=== PATIENT | male | born 1985 | race African-American/Black ===

== ENCOUNTER 2017-03-17 20:19 | Emergency (ER) | payer MEDICAID, OTHER ==
[~2017-03-17] VITALS: Ht 177.8 cm; Wt 75.0 kg
[2017-03-17] MEDS ORDERED: LIDOCAINE 1%, 20ML SQ ONE (21:00)
[2017-03-17 22:30] VITALS: BP 129/74
== END 2017-03-17 22:31 | disposition home or self-care (01) ==
LOC: ED 21:43
DX: S01.511A Laceration without foreign body of lip, initial encounter (principal); H57.12 Ocular pain, left eye; W50.0XXA Accidental hit or strike by another person, initial encounter; Y93.89 Activity, other specified; Y92.148 Other place in prison as the place of occurrence of the external cause; Y99.8 Other external cause status
CPT/HCPCS: 12051; 99284

== ENCOUNTER 2019-10-02 13:52 | Emergency (ER) | payer MEDICAID, OTHER ==
[~2019-10-02] VITALS: Ht 177.8 cm; Wt 86.7 kg
[2019-10-02 14:10] VITALS: BP 99/74
[2019-10-02] MEDS ORDERED: CEFTRIAXONE 1,000 MG ONE (14:36)
[2019-10-02] MEDS ORDERED: AZITHROMYCIN 500 MG TABLET ONE (14:36)
[2019-10-02 14:48] LABS: MICROSCOPIC NOT IND
[2019-10-02 14:52] LABS: CULTURE INDICATED? NO
[2019-10-02] MEDS ORDERED: AZITHROMYCIN 500 MG TABLET PO ONE (15:00)
[2019-10-02] MEDS ORDERED: CEFTRIAXONE 250 MG IM ONE (15:00)
== END 2019-10-02 15:16 | disposition home or self-care (01) ==
LOC: ED 14:40
DX: N34.2 Other urethritis (principal)
CPT/HCPCS: 81003; 87491; 87591; 96372; 99283; J0696

== ENCOUNTER 2020-11-16 20:25 | Emergency (ER) | payer MEDICAID ==
[~2020-11-16] VITALS: Ht 177.8 cm; Wt 85.2 kg
[2020-11-16 21:37] LABS: MICROSCOPIC INDICATED
[2020-11-16] MEDS ORDERED: AZITHROMYCIN 500 MG TABLET PO ONE (22:30)
[2020-11-16] MEDS ORDERED: CEFTRIAXONE 1,000 MG IM ONE (22:30)
[2020-11-16] MEDS ORDERED: CEFTRIAXONE 1,000 MG ONE (22:36)
[2020-11-16] MEDS ORDERED: AZITHROMYCIN 500 MG TABLET ONE (22:36)
[2020-11-16 23:00] VITALS: BP 125/62
== END 2020-11-16 23:03 | disposition home or self-care (01) ==
LOC: ED 22:45
DX: R30.0 Dysuria (principal); N34.1 Nonspecific urethritis
CPT/HCPCS: 81001; 87086; 87491; 87591; 96372; 99283; J0696